=== PATIENT | female | born 1995 | race Asian ===

== ENCOUNTER 2018-10-23 13:05 | Emergency (ER) | payer OTHER ==
[~2018-10-23] VITALS: Ht 160 cm; Wt 60.0 kg
--- NOTE | 2018-10-23 13:35 | NUR ---
Patients wellness trainer is in the [place] swearing and screaming at registration and security. User Support Analyst Supervisor was informed that labs have been ordered on Gila and we will get her back in the ER after we get a room cleaned for her to go in. He was then instructed that if he continues to scream and swear at staff members he will be escorted off the property and that it will not be tolerated. User Support Analyst Supervisor stopped screaming and began to act more appropriate towards the situation.
[2018-10-23 13:55] LABS: BASOPHILS % (AUTO) 0.6 % (0-1); EOSINOPHILS % (AUTO) 0.6 % (0-6); HEMATOCRIT 35.5 % (35.0-45.0); HEMOGLOBIN 12.1 g/dl (12.0-16.0); LYMPHOCYTES # (AUTO) 1.3 X10'3 (1.1-4.8); LYMPHOCYTES % (AUTO) 17.8 % (21-51); MEAN CORPUSCULAR HEMOGLOBIN 30.5 PG (27.0-31.0); MEAN CORPUSCULAR HGB CONC 34.1 g/dL (33.0-36.5); MEAN CORPUSCULAR VOLUME 89.4 FL (78-98); MEAN PLATELET VOLUME 6.8 FL (7.4-10.4); MONOCYTES # (AUTO) 0.4 X10'3 (0-0.9); MONOCYTES % (AUTO) 6.1 % (2-12); NEUTROPHILS # (AUTO) 5.3 X10'3 (1.8-7.7); NEUTROPHILS % (AUTO) 74.9 % (42-75); PLATELET COUNT 238 X10'3 (140-440); RED BLOOD COUNT 3.97 X10'6 (4.20-5.60); RED CELL DISTRIBUTION WIDTH 12.7 % (11.5-14.5); WHITE BLOOD COUNT 7.1 X10'3 (4.5-11.0)
[2018-10-23 14:10] LABS: ALANINE AMINOTRANSFERASE 64 U/L (12-78); ALKALINE PHOSPHATASE 50 IU/L (46-116); ANION GAP 13 (8-16); ASPARTATE AMINO TRANSFERASE 70 U/L (10-37); BILIRUBIN,TOTAL 0.6 MG/DL (0.1-1.0); BLOOD UREA NITROGEN 15 MG/DL (7-18); BUN/CREATININE RATIO 23.8 (6.6-38.0); CHLORIDE 106 MMOL/L (99-107); CREATININE 0.63 MG/DL (0.40-0.90); GLUCOSE 93 MG/DL (70-104); POTASSIUM 3.6 MMOL/L (3.5-5.1); SODIUM 143 MMOL/L (135-145); TOTAL CARBON DIOXIDE 23.6 MMOL/L (24-32); TOTAL PROTEIN 8.2 G/DL (6.4-8.2); eGFR > 90 ML/MIN
[2018-10-23 14:12] LABS: INR 1.1 INR
[2018-10-23] MEDS ORDERED: ondansetron/PF 4mg/2ml inj IV ONE (15:05)
[2018-10-23] MEDS ORDERED: morphine 4 MG/ML inj SYRINge IV ONE (15:05)
[2018-10-23] MEDS ORDERED: normal saline 1000ML IV soln IVB ONE (15:05)
[2018-10-23] MEDS ORDERED: LORazepam 2 mg/ml vial IM ONE (15:10)
--- NOTE | 2018-10-23 15:13 | NUR ---
EMESIS X3 MODERATE AMT OF BLOOD TINGED SECRETIONS
[2018-10-23 15:30] LABS: CLARITY,URINE CLEAR (Clear); COLOR,URINE YELLOW (Yellow); GLUCOSE, URINE NEGATIVE (Neg); KETONES,URINE 15 mg/dl (Neg); LEUKOCYTE ESTERASE ,URINE NEGATIVE (Neg); NITRITES, URINE NEGATIVE (Neg); OCCULT BLOOD,URINE LARGE (Neg); PH,URINE >=9.0 (4.8-8.0); PROTEIN,URINE 30 mg/dl (Neg)
[2018-10-23 15:31] LABS: UA COLLECTION TYPE CLN CATCH MIDSTREAM
[2018-10-23 15:32] LABS: URINE HCG POSITIVE (NEG)
[2018-10-23 15:48] LABS: MUCUS STRANDS FEW /LPF (Neg); SQUAMOUS EPITHELIAL CELL,UR MODERATE /LPF (FEW)
[2018-10-23 15:49] LABS: RBC,URINE 50-100 /HPF (0-2)
[2018-10-23 15:51] LABS: BACTERIA,URINE FEW /HPF (Neg); WBC,URINE 0-4 /HPF (0-4)
--- NOTE | 2018-10-23 17:04 | NUR ---
ULTRASOUND BEING DONE AT BEDSIDE
[2018-10-23 18:55] VITALS: BP 112/63
== END 2018-10-23 18:53 | disposition home or self-care (01) ==
LOC: ER 13:06
DX: R10.31 Right lower quadrant pain (principal); R11.10 Vomiting, unspecified
CPT/HCPCS: 36415; 76700; 76830; 76856; 80053; 81001; 81025; 83605; 84145; 84702; 85025; 85610; 96361; 96372; 96374; 96375; 99284; J2060; J2270; J2405; J7030; 96376